=== PATIENT | female | born 1935 | race Caucasian/White ===

== ENCOUNTER 2020-03-29 14:02 | Outpatient (CLI) | payer OTHER ==
[~2020-03-29 14:02] MED LIST: AMLODIPINE BESYL5 MG; AVALIDE 300-121 EACH; GLIPIZIDE ER5 MG; NABUMETONE500 MG PO; PERCOCET 5-3251 EACH PO; SYNTHROID50 MCG
== END 2020-03-29 14:13 | disposition home or self-care (01) ==
LOC: MRI 14:02
PROVIDERS: ATTEND Orthopaedic Surgery
DX: M25.512 Pain in left shoulder (principal)
CPT/HCPCS: 73221

== ENCOUNTER 2023-09-10 07:54 | Outpatient (CLI) | payer OTHER | END 2023-09-10 08:01 | disposition home or self-care (01) | LOC: TOM 07:54 | PROVIDERS: ATTEND Internal Medicine Hematology & Oncology | DX: K42.9 Umbilical hernia without obstruction or gangrene (principal); R97.0 Elevated carcinoembryonic antigen [CEA] ==

== ENCOUNTER 2024-04-30 11:39 | Emergency (ER) | payer OTHER ==
[~2024-04-30] VITALS: Ht 154.9 cm; Wt 64.9 kg
[2024-04-30] MEDS ORDERED: FENOFIBRATE145 MG PO (11:53)
[2024-04-30] MEDS ORDERED: GABAPENTIN100 M2 PO (11:53)
[2024-04-30] MEDS ORDERED: FOLIC ACID1 MG PO (11:53)
[2024-04-30] MEDS ORDERED: FARXIGA5 MG PO (11:54)
[2024-04-30] MEDS ORDERED: DEXTROSE 50 % IN WATER 0.5 G/ML VIAL IV ONE ×2 (12:06→12:30)
[2024-04-30 12:41] LABS: HEMATOCRIT 30.1 % (36.0-45.00); HEMOGLOBIN 9.9 g/dL (12.0-15.00); MEAN CELL VOLUME 92.8 fL (80.00-100.00); MEAN CORPUSCULAR HEMOGLOBIN 30.6 pg (27.00-32.0); PLATELET COUNT 208 K/uL (150-450); RED BLOOD COUNT 3.24 M/uL (4.00-6.00); RED CELL DISTRIBUTION WIDTH 14.2 % (11.5-14.5)
[2024-04-30 13:14] LABS: ALBUMIN 3.4 gm/dL (3.4-5.0); BILIRUBIN TOTAL 0.45 mg/dL (0.3-1.2); CALCIUM 9.5 mg/dL (8.5-10.1); CREATININE SERUM 1.76 mg/dL (0.55-1.02); GFR 27.19; GLOBULINA 4.1 G/DL (2.4-3.5); POTASSIUM 4.79 mEq/L (3.5-5.1); TOTAL PROTEIN 7.5 gm/dL (6.4-8.2)
[2024-04-30 14:27] LABS: PH,URINE 7.5 (5.0-8.0); URINE APPEARANCE Clear; URINE BILIRRUBIN Negative (NEGATIVE); URINE BLOOD Negative; URINE COLOR Yellow; URINE KETONE Negative (NEGATIVE); URINE LEUKOCYTE Trace; URINE NITRATE Negative; URINE PROTEIN Negative (NEGATIVE); URINE UROBILINOGEN 0.2 E.U./dl
[2024-04-30 14:31] LABS: URINE BACTERIA 26.4 uL (0.0-1933); URINE RBC 4.2 uL (0.0-20.8); URINE WBC 12.3 uL (0.0-23.2)
[2024-04-30 14:37] LABS: URINE GLUCOSE 250 MG/DL (NEGATIVE)
== END 2024-04-30 14:50 | disposition home or self-care (01) ==
LOC: ER 11:41
PROVIDERS: General Practice
DX: E11.65 Type 2 diabetes mellitus with hyperglycemia (principal); Z79.84 Long term (current) use of oral hypoglycemic drugs; M19.90 Unspecified osteoarthritis, unspecified site; N18.9 Chronic kidney disease, unspecified
CPT/HCPCS: 36415; 96365; 99282; J7070